=== PATIENT | male | born 1960 | race African-American/Black ===

== ENCOUNTER 2018-06-10 17:50 | Emergency (ER) | payer BC, SELFPAY ==
[2018-06-10] MEDS ORDERED: Sulfameth/Trimethoprim DS 800-160mg TAB ONE (18:14)
[2018-06-10] MEDS ORDERED: Naproxen 500 MG TAB ONE (18:14)
== END 2018-06-10 18:23 | disposition home or self-care (01) ==
LOC: SCSER 17:50
DX: L03.113 Cellulitis of right upper limb (principal); I10 Essential (primary) hypertension
CPT/HCPCS: 99283